=== PATIENT | female | born 1940 | race Hispanic/Latino ===

== ENCOUNTER 2020-08-13 20:38 | Inpatient (IN) | payer MEDICARE ==
[2020-08-13 22:49] VITALS: BMI 25.1
[2020-08-13] MEDS ORDERED: Ondansetron PF 4 MG/2 ML Vial IVP PRN (23:49)
[2020-08-13] MEDS ORDERED: Nitroglycerin 0.4 MG TAB (25 Tab Bottle) SL PRN (23:49)
[2020-08-13] MEDS ORDERED: Bisacodyl 10 MG SUPP PR PRN (23:49)
[2020-08-13] MEDS ORDERED: Labetalol HCl 100 MG/20 ML VIAL SLOW IVP PRN (23:53)
[2020-08-14 00:56] LABS: Troponin I 0.025 ng/mL (< 0.028)
[2020-08-14] MEDS: cefTRIAXone\\ROCEPHIN 1 GM in Sodium Chloride 0.9% 100 ML IVPB SCH ×2 (01:37→23:59)
[2020-08-14 05:13] LABS: Hemoglobin 13.5 g/dL (12.0-16.0); Mean Corpuscular HGB CONC 32.6 g/dL (32.0-36.0); Mean Corpuscular Hemoglobin 32.6 pg (27.0-31.0); Mean Platelet Volume 8.5 fL (7.4-10.4); Platelet Count 181 thou/uL (130-400); RBC Distribution Width 11.8 % (11.5-14.5); Red Blood Cell (RBC) Count 4.16 mill/uL (4.20-5.40); White Blood Cell (WBC) Count 15.6 thou/uL (4.8-10.8)
[2020-08-14 05:24] LABS: Band 26 % (5-11); Lymphocytes 8 % (21-51); MDiff Complete? YES; Monocytes 3 % (0-10); Neutrophil 63 % (42-75)
[2020-08-14 05:28] LABS: ALT (SGPT) 103 U/L (8-55); AST (SGOT) 147 U/L (5-34); Albumin 3.4 g/dL (3.4-4.8); Alkaline Phosphatase 201 U/L (40-110); Anion Gap 15 mmol/L (10-20); BUN (Urea Nitrogen) 19 mg/dL (9.8-20.1); Bilirubin, Total 1.1 mg/dL (0.2-1.2); Calc. Creatinine Clearance 51 mL/min (70-130); Calcium 8.9 mg/dL (7.8-10.44); Carbon Dioxide 23 mmol/L (23-31); Chloride 105 mmol/L (98-107); Cholesterol 84 mg/dl (< 200 Desired); Globulin 2.8 g/dL (2.4-3.5); Glucose 113 mg/dL (83-110); HDL Cholesterol 41 mg/dL (>60 Neg Risk); LDL Cholesterol, Calculated 35 mg/dL; Potassium 4.6 mmol/L (3.5-5.1); Protein, Total 6.2 g/dL (5.8-8.1); Sodium 138 mmol/L (136-145); Triglycerides 39 mg/dL (Less than 150); Troponin I 0.022 ng/mL (< 0.028)
[2020-08-14] MEDS: Famotidine 20 MG TAB PO SCH (07:57)
[2020-08-14] MEDS: Aspirin Chewable 81 MG TAB PO SCH (07:57)
[2020-08-14] MEDS: Apixaban 5 MG TAB PO SCH ×2 (07:57→20:22)
[2020-08-14] MEDS: GUAIFENESIN SF SOLN 200 MG/10 ML UDCUP PO PRN ×4 (07:59→23:52)
[2020-08-14] MEDS ORDERED: Metoprolol Tartrate 25 MG TAB PO SCH (09:00)
[2020-08-14] MEDS: Azithromycin 250 MG TAB PO SCH (09:03)
[2020-08-14 15:08] LABS: #Lymphocytes 1.8 thou/uL (1.20-3.40); #Monocytes 0.7 thou/uL (0.11-0.59); #Neutrophils 13.3 thou/uL (1.40-6.50); %Basophils 0.3 % (0.0-1.0); %Eosinophils 0.2 % (0.0-10.0); %Lymphocytes 11.4 % (21.0-51.0); %Monocytes 4.4 % (0.0-10.0); %Neutrophils 83.7 % (42.0-75.0); Hemoglobin 14.4 g/dL (12.0-16.0); Mean Corpuscular HGB CONC 33.6 g/dL (32.0-36.0); Mean Corpuscular Hemoglobin 33.2 pg (27.0-31.0); Mean Corpuscular Volume 98.9 fL (78.0-98.0); Mean Platelet Volume 8.1 fL (7.4-10.4); Platelet Count 189 thou/uL (130-400); RBC Distribution Width 11.8 % (11.5-14.5); Red Blood Cell (RBC) Count 4.33 mill/uL (4.20-5.40); White Blood Cell (WBC) Count 15.9 thou/uL (4.8-10.8)
[2020-08-14] MEDS: Acetaminophen 325 MG TAB PO PRN ×2 (15:15→20:31)
[2020-08-15 05:30] LABS: Anion Gap 13 mmol/L (10-20); BUN (Urea Nitrogen) 17 mg/dL (9.8-20.1); Calc. Creatinine Clearance 55 mL/min (70-130); Calcium 9.1 mg/dL (7.8-10.44); Carbon Dioxide 24 mmol/L (23-31); Chloride 107 mmol/L (98-107); Glucose 98 mg/dL (83-110); Potassium 3.9 mmol/L (3.5-5.1); Sodium 140 mmol/L (136-145)
[2020-08-15] MEDS: GUAIFENESIN SF SOLN 200 MG/10 ML UDCUP PO PRN ×3 (08:00→20:42)
[2020-08-15] MEDS: Apixaban 5 MG TAB PO SCH ×2 (08:00→20:36)
[2020-08-15] MEDS: Aspirin Chewable 81 MG TAB PO SCH (08:00)
[2020-08-15] MEDS: Famotidine 20 MG TAB PO SCH (08:01)
[2020-08-15] MEDS: Azithromycin 250 MG TAB PO SCH (08:01)
[2020-08-15 09:44] LABS: Hemoglobin 14.2 g/dL (12.0-16.0); Platelet Count 187 thou/uL (130-400)
[2020-08-15] MEDS ORDERED: Furosemide 40 MG/4 ML VIAL SLOW IVP SCH (13:30)
[2020-08-15] MEDS: Acetaminophen 325 MG TAB PO PRN (15:09)
[2020-08-16] MEDS: cefTRIAXone\\ROCEPHIN 1 GM in Sodium Chloride 0.9% 100 ML IVPB SCH (00:42)
[2020-08-16] MEDS: Aspirin Chewable 81 MG TAB PO SCH (08:15)
[2020-08-16] MEDS: GUAIFENESIN SF SOLN 200 MG/10 ML UDCUP PO PRN (08:15)
[2020-08-16] MEDS: Azithromycin 250 MG TAB PO SCH (08:15)
[2020-08-16] MEDS: Famotidine 20 MG TAB PO SCH (08:15)
[2020-08-16] MEDS: Apixaban 5 MG TAB PO SCH ×2 (08:16→21:31)
[2020-08-16] MEDS ORDERED: Furosemide 20 MG/2 ML VIAL SLOW IVP SCH (09:15)
[2020-08-16] MEDS ORDERED: Losartan 25 MG TAB PO SCH (13:15)
[2020-08-16] MEDS: methylPREDNISolone Sod Succ 40 MG VIAL IVP SCH ×2 (14:38→21:32)
[2020-08-16] MEDS: guaiFENesin/Codeine 200 mg/20 mg 10 ml Cup PO SCH ×2 (14:39→21:31)
[2020-08-16] MEDS: Acetaminophen 325 MG TAB PO PRN (21:32)
[2020-08-17] MEDS: cefTRIAXone\\ROCEPHIN 1 GM in Sodium Chloride 0.9% 100 ML IVPB SCH (00:41)
[2020-08-17 05:29] LABS: Anion Gap 16 mmol/L (10-20); BUN (Urea Nitrogen) 16 mg/dL (9.8-20.1); Calc. Creatinine Clearance 49 mL/min (70-130); Calcium 9.2 mg/dL (7.8-10.44); Carbon Dioxide 23 mmol/L (23-31); Chloride 104 mmol/L (98-107); Glucose 164 mg/dL (83-110); Potassium 3.9 mmol/L (3.5-5.1); Sodium 139 mmol/L (136-145)
[2020-08-17] MEDS: guaiFENesin/Codeine 200 mg/20 mg 10 ml Cup PO SCH (06:11)
[2020-08-17] MEDS: methylPREDNISolone Sod Succ 40 MG VIAL IVP SCH ×2 (06:11→15:46)
[2020-08-17] MEDS: Aspirin Chewable 81 MG TAB PO SCH (07:46)
[2020-08-17] MEDS: Azithromycin 250 MG TAB PO SCH (07:46)
[2020-08-17] MEDS: Furosemide 20 MG TAB PO SCH ×2 (07:46→15:46)
[2020-08-17] MEDS: Famotidine 20 MG TAB PO SCH (07:47)
[2020-08-17] MEDS: Apixaban 5 MG TAB PO SCH (07:47)
[2020-08-17] MEDS ORDERED: Losartan 25 MG TAB PO SCH (09:00)
[2020-08-17] MEDS ORDERED: Amlodipine 5 MG TAB PO SCH (09:00)
[2020-08-17 09:44] LABS: Hemoglobin 13.8 g/dL (12.0-16.0); Platelet Count 226 thou/uL (130-400)
[2020-08-17 15:51] VITALS: BP 125/82; TEMP 98
== END 2020-08-17 18:35 | disposition home or self-care (01) | DRG 193 ==
LOC: EDBD → 2SW 20:38 → OBSVTOIN 08-14 15:12
PROVIDERS: ADMIT Student in an Organized Health Care Education/Training Program; ATTEND Internal Medicine
DX: J18.9 Pneumonia, unspecified organism (principal); I50.33 Acute on chronic diastolic (congestive) heart failure; I11.0 Hypertensive heart disease with heart failure; Z20.822 Contact with and (suspected) exposure to COVID-19; E03.9 Hypothyroidism, unspecified; I48.0 Paroxysmal atrial fibrillation; R77.8 Other specified abnormalities of plasma proteins; I08.3 Combined rheumatic disorders of mitral, aortic and tricuspid valves; K76.1 Chronic passive congestion of liver; D72.829 Elevated white blood cell count, unspecified; Z79.01 Long term (current) use of anticoagulants; Z98.890 Other specified postprocedural states; Z90.49 Acquired absence of other specified parts of digestive tract; Z79.899 Other long term (current) drug therapy; Z79.82 Long term (current) use of aspirin; Z79.890 Hormone replacement therapy
CPT/HCPCS: 36415; 71250; 80053; 80061; 82565; 83880; 84443; 85007; 85014; 85018; 85027; 85049; 93306; 94640; 94760; 96365; G0378; J0696; J1940; J2920; J3490; J7620